=== PATIENT | female | born 1995 | race Caucasian/White ===

== ENCOUNTER 2020-09-13 23:51 | Emergency (ER) | payer OTHER, SELFPAY ==
[2020-09-13 23:52] VITALS: BP 121/92; PULSE 96; RESP 18; TEMP 36.8; O2SAT 100; BMI 20.2
[2020-09-13 23:56] VITALS: O2SAT 100
--- NOTE | 2020-09-14 00:02 | RAD_ITS ---
STUDY: X-RAY CHEST REASON FOR EXAM: Female, 25 years old. Dyspnea TECHNIQUE: Single AP portable view of the chest. COMPARISON: None. FINDINGS: The lungs are clear and expanded. There is no demonstrated pleural abnormality. Normal size heart. Normal mediastinum and clary. Normal visualized pulmonary arteries. Normal visualized aortic arch and descending thoracic aorta. Normal visualized thoracic spine. Normal visualized ribs, clavicles, and shoulders. There is no demonstrated abnormality of the visualized soft tissue structures of the upper abdomen. RAD/Chest 1 View (Portable) IMPRESSION: Normal x-ray examination of the chest. Electronically Signed: Glenny Almaguer MD at 1:10 EDT , Service support ,
--- NOTE | 2020-09-14 00:03 | EKG12_ITS ---
Test Reason : DYSRHYTHMIA Blood Pressure : / mmHG Vent. Rate : 092 BPM Atrial Rate : 092 BPM P-R Int : 108 ms QRS Dur : 080 ms QT Int : 342 ms P-R-T Axes : 057 071 055 degrees QTc Int : 422 ms Sinus rhythm with sinus arrhythmia with short ND Otherwise normal ECG Confirmed by YAMINI BOSWELL, BASILIO ([id number]), subeditor MCKINLEY MCPHERSON ([id number]) on 09/16/2020 10:11:37 AM Referred By: LAKEISHA Confirmed By:BASILIO KC MD
--- NOTE | 2020-09-14 00:06 | EDS_ITS ---
HPI History of Present Illness Chief Complaint: Shortness of Breath Informant: patient Onset/Context/Timing Onset: Today Context: Sudden Onset Timing: Continuous Quality: Sharp Location: Chest Worsened by: Talking Relieved by: Nothing Narrative Narrative: Patient presents with shortness of breath and chest pain that began tonight. Patient states she was in the shower when this began. Patient states it began rather suddenly. Patient states she felt like she was shaking. Patient states her chest pain has improved. Patient still feels slightly short of breath. Patient states that it is worse whenever she is talking. Patient denies any cough or palpitations. Patient admits to nausea but denies any vomiting. Patient denies any diaphoresis. Patient denies any palpitations. PFSH PFSH no medical history Home Medications norethindrone-e.estradiol-iron [] 1 tab PO DAILY 09/13/20 [History Last Taken Unknown] Allergy/AdvReac Type Severity Reaction Status Date / Time No Known Allergies Allergy Verified 09/13/20 23:55 no surgical history Social History Smoking Status: Never smoker ROS ROS ED Constitutional Constitutional ED: Denies chills or fever(s) Eyes Eyes: Denies blurry vision or change in vision ENT ENT ED: Denies rhinorrhea or sore throat Cardiovascular Cardiovascular: Reports chest pain; Denies palpitations Respiratory/Chest Respiratory/Chest: Reports dyspnea; Denies cough Gastrointestinal Gastrointestinal: Reports nausea; Denies vomiting Genitourinary Genitourinary ED: Denies dysuria or hematuria Musculoskeletal Musculoskeletal: Denies back pain or neck pain Integumentary Denies abscess or rash Neurologic Neurologic: Reports headache(s); Denies weakness Allergic/Immunologic Allergic/Immunologic ED: Denies mouth swelling or urticaria EXAM Physical Exam Const Vital Signs: 09/13/20 23:52 09/13/20 23:56 09/14/20 00:13 Temperature 98.3 F Temperature Source Oral Pulse Rate 96 102 H Respiratory Rate 18 14 Respiratory Effort Short of Breath Respiratory Pattern Normal Normal Blood Pressure 121/92 H Blood Pressure Mean 101 Pulse Ox 100 Oxygen Delivery Method Room Air Room Air 09/14/20 01:53 Temperature Temperature Source Pulse Rate 93 Respiratory Rate 17 Respiratory Effort Respiratory Pattern Blood Pressure 112/72 Blood Pressure Mean 85 Pulse Ox 98 Oxygen Delivery Method Room Air Positive well nourished and well developed General Appearance ED: well developed HEENT Reports moist mucous membranes normocephalic and atraumatic Neck supple and no JVD Resp normal respiratory effort and clear to auscultation bilaterally Cardio regular rate, regular rhythm and no murmurs Rate: regular rate Rhythm: regular rhythm GI normal to inspection, nondistended, normoactive bowel sounds, non-tender and non-distended Auscultation: normoactive bowel sounds Palpation: soft Extremity normal to inspection General Extremety ED: Negative for edema or tenderness General Extremity: Negative for edema Neuro oriented x3, CN's II-XII intact bilaterally and no sensory deficits noted Sensorium / Orientation: alert Motor Exam: strength 5/5 throughout Psych mental status grossly normal Skin Rashes: no rashes MDM MDM MDM Narrative Medical decision making narrative: Patient was given a DuoNeb aerosol here. EKG was obtained. On my interpretation, it showed a normal sinus rhythm with a rate of 92. LA interval, QRS interval, and QTc intervals were all normal. [place] was normal. There are no acute ST or T wave changes. CBC and comprehensive metabolic profile were within normal limits. Troponin was normal. Portable 1 view chest x-ray was obtained. On my interpretation, lung pryor are clear. There is normal cardiac silhouette. Bony thorax is normal. There is no acute process noted. Radiologist also interpreted the x-ray and agrees. Since her symptoms began less than 1 hour prior to arrival, I recommended doing a delta troponin. This was done and was within normal limits. Patient was advised of her findings. Patient is feeling better on reevaluation. Patient was instructed to follow-up with her primary care physician in 5 to 7 days. Patient understood and was agreeable with the plan. All questions were answered. Lab Data Attestation: I reviewed the patient's lab results. Labs: Laboratory Results - last 24 hr 09/13/20 09/13/20 09/14/20 23:55 23:55 02:48 WBC 8.6 RBC 4.50 Hgb 13.1 Hct 38.1 MCV 84.7 MCH 29.1 MCHC 34.4 RDW Std Deviation 36.5 RDW Coeff of Marie 12.0 Plt Count 220 MPV 10.8 Immature Gran % (Auto) 0.200 Neut % (Auto) 54.0 Lymph % (Auto) 34.8 Phillips % (Auto) 8.4 Eos % (Auto) 2.0 Baso % (Auto) 0.6 Absolute Neuts (auto) 4.7 Absolute Lymphs (auto) 2.99 Nucleated RBC % 0 Sodium 139 Potassium 3.5 Chloride 108 H Carbon Dioxide 22.0 Anion Gap 9 BUN 14 Creatinine 1.00 Estim Creat Clear Calc 80.25 Est GFR (MDRD) Af Amer 87 Est GFR (MDRD) Non-Af 72 BUN/Creatinine Ratio 14.0 Glucose 101 Calcium 9.2 Total Bilirubin 0.40 AST 13 L ALT 18 Alkaline Phosphatase 65 Troponin I < 0.015 < 0.015 Total Protein 7.1 Albumin 3.6 Globulin 3.5 Albumin/Globulin Ratio 1.0 Radiography Chest X-Ray - ED: 1 View, Read by ED Physician, Read by Radiologist and Normal Diagnostic Testing: Radiology Impression Chest X-Ray 09/14/20 00:02 IMPRESSION: Normal x-ray examination of the chest. Electronically Signed: Glenny Almaguer MD at 1:10 EDT , Service support , EKG Initial EKG: Attestation: I personally reviewed and interpreted this EKG as follows: Interpretation: Sinus Rhythm (92) and No Acute Injury Pattern Discharge Plan Triage Chief Complaint: Shortness of Breath ED Provider: Jitendra Joyce Dx/Rx/DC Orders Clinical Impression: Dyspnea Instructions: ED Dyspnea Prescriptions: No Action norethindrone-e.estradiol-iron [] 1 mg-20 mcg (24)/75 mg (4) Tablet 1 tab PO DAILY RF: 0 Primary Care Provider: Care Physician,No Primary Referrals: Andrea Whitmore MD [STAFF PHYSICIAN] - 5-7 Days Care Physician,No Primary [Primary Care Provider] - Disposition Disposition: Home, self care
[2020-09-14 00:13] VITALS: PULSE 102; RESP 14
[2020-09-14] MEDS: Ipratropium/Albuterol Sulfate 3 ML AMPUL.NEB INHALATION (00:13)
[2020-09-14 00:18] LABS: Absolute Lymphocyte Count 2.99 X10^3/uL (0.83-4.51); Absolute Neutrophil Count 4.7 X10^3/uL (2.0-7.7); Basophil# 0.05 X10^3/uL; Basophil% 0.6 % (0-1); Eosinophil# 0.17 X10^3/uL; Hematocrit 38.1 % (37-47); Hemoglobin 13.1 g/dL (12.0-15.0); Lymphocyte # 2.99 X10^3/ul (0.83-4.51); Lymphocyte % 34.8 % (19-41); Mean Corp Hgb Conc 34.4 g/dL (32-36); Mean Corpuscular Hgb 29.1 pg (27.0-32.0); Mean Corpuscular Volume 84.7 fL (81-99); Mean Platelet Vol. 10.8 fl (6.2-12.0); Monocyte# 0.72 X10^3/uL; Monocyte% 8.4 % (0-10); NRBC Flagged by Analyzer 0 % (0-5); Neutrophil # 4.65 X10^3/uL (2.7-7.7); Platelet Count 220 K/mm3 (150-450); RBC Distribution Width SD 36.5 fl (35.1-43.9); White Blood Count 8.6 K/mm3 (4.4-11.0)
[2020-09-14 00:30] LABS: AST(SGOT) 13 U/L (15-37); Alanine Aminotransfer ALT/SGPT 18 U/L (13-56); Albumin, Serum 3.6 g/dL (3.2-5.0); Alkaline Phosphatase 65 U/L (45-117); Anion Gap 9 (5-15); BUN 14 mg/dL (7-18); Calcium,Total 9.2 mg/dL (8.5-10.1); Chloride 108 mmol/L (98-107); EST Glomerular Filtration Rate 72 mL/min (>60); Est Glom Filt Rate - Afr Amer 87 mL/min (>60); Estimated Creatinine Clearance 80.25 ml/min; Globulin 3.5 g/dL (2.2-4.2); Glucose 101 mg/dL (74-106); Potassium 3.5 mmol/L (3.5-5.1); Protein, Total 7.1 g/dL (6.4-8.2); Sodium Level 139 mmol/L (136-145)
[2020-09-14 01:53] VITALS: BP 112/72; PULSE 93; RESP 17; O2SAT 98
[2020-09-14 03:20] VITALS: BP 106/77; PULSE 74; RESP 12; O2SAT 97
== END 2020-09-14 03:24 | disposition home or self-care (01) ==
PROVIDERS: Emergency Provider Emergency Medicine
DX: R06.00 Dyspnea, unspecified (principal); R11.0 Nausea; R07.9 Chest pain, unspecified; R06.02 Shortness of breath; Z79.899 Other long term (current) drug therapy
CPT/HCPCS: 71045; 80053; 84484; 85025; 93005; 94640; 99285; A4216